=== PATIENT | female | born 1965 | race Asian ===

== ENCOUNTER 2020-11-24 17:40 | Emergency (ER) | payer BC ==
[~2020-11-24] VITALS: Ht 152.4 cm; Wt 65.8 kg
[~2020-11-24 17:40] MED LIST: ACETAMINOPHEN-1 EAC1 PO; AMBEREN; AMITRIPTYLINE H25 M2 PO; CARAFATE 1 GM TA1 GM PO; FISHOIL; FLEXERIL PO; K-DUR 20 MEQ T20 MEQ PO; LIPITOR20 MG PO; ONDANSETRON HCL4 M2 PO; PAIN RELIEVER325 MG PO; PEPCID20 MG PO; PHENERGAN 25 MG25 M1 PO; POTASSIUM20 PO; TOPROL XL25 MG PO; UNICOMPLEX M TA1 TA1 PO; VITAMIN D1000 UNI1 PO; XANAX 0.25 MG0.25 MG PO; ZYRTEC10 MG PO
[2020-11-24 19:08] LABS: ABSOLUTE BASOPHILS 0.1 thou/uL (0.0-0.2); ABSOLUTE EOSINOPHILS 0.1 thou/uL (0.0-0.7); ABSOLUTE LYMPHOCYTES 2.4 thou/uL (0.8-5.3); ABSOLUTE MONOCYTES 0.6 thou/uL (0.0-1.2); ABSOLUTE NEUTROPHILS 5.3 thou/uL (1.6-8.1); BASOPHILS 0.9 %; EOSINOPHILS 1.5 %; HEMOGLOBIN 16.4 gm/dL (12.0-15.0); LYMPHOCYTES 28.7 %; MCH 31.7 pg (26.0-34.0); MCHC 34.8 g/dL (28.0-37.0); MONOCYTES 6.5 %; MPV 7.7 fl. (7.2-11.1); NUCLEATED RBCS 0 /100WBC; PLATELET COUNT* 231 thou/uL (150-400); POLYS 62.4 %; RBC 5.17 mil/uL (4.20-5.00); RDW-CV 12.2 % (10.5-14.5); WBC 8.5 thou/uL (4.0-11.0)
[2020-11-24 19:15] LABS: CALCIUM 8.5 mg/dL (8.5-10.1); CREATININE 0.7 mg/dL (0.6-1.3); POTASSIUM 3.8 mmol/L (3.5-5.1)
[2020-11-24 19:19] LABS: TOTAL BILIRUBIN 0.6 mg/dL (<0.1-1.0); TOTAL PROTEIN 8.1 g/dL (6.4-8.2)
[2020-11-24] MEDS ORDERED: MEDROLDOSEPACK PO (20:22)
[2020-11-24] MEDS ORDERED: MELOXICAM7.5 MG PO (21:18)
[2020-11-24] MEDS ORDERED: ENDOCET 5-3251 EACH PO (21:38)
[2020-11-24 22:05] VITALS: BP 149/86
--- NOTE | 2020-11-25 09:52 | EKG ---
[place] [address] ELECTROCARDIOGRAM REPORT Name: RAYO SHAH V Room: [facility]#: [id number] Admission: 11/24/20 Attend Phys: Discharge: 11/24/20 Date of : 69 Date of Service: 11/24/201836 Report #: [id number] THIS REPORT FOR: //name// [facility] ED Test Date: 2020-11-24 Test Time: 18:37:49 Pat Name: RAYO SHAH Department: Room: Gender: F Resident Service Coordinator: CELESTINO : 1965 Requested By: Chari Linder Order Number: [id number] MD: Gabriel Spivey Measurements Intervals [place] Rate: 81 P: 81 [place]: 159 QRS: 61 QRSD: 89 T: 74 QT: 406 QTc: 472 Interpretive Statements Sinus rhythm Multiple ventricular premature complexes Probable left atrial enlargement Probable left ventricular hypertrophy Nonspecific T abnrm, anterolateral leads Compared to ECG 02/01/2016 18:08:34 Ventricular premature complex(es) now present Electronically Signed On 11-25-2020 9:52:03 CDT by Gabriel Spivey [email or web address] <ELECTRONICALLY SIGNED> By: Gabriel Spivey MD, FACC 11/25/20 [id number] Gabriel Spivey MD, FACC /EPI
== END 2020-11-24 22:05 | disposition home or self-care (01) ==
LOC: M.ERS 17:40
PROVIDERS: Nurse Practitioner Family
DX: M25.412 Effusion, left shoulder (principal); Z88.5 Allergy status to narcotic agent; Z88.6 Allergy status to analgesic agent; Z88.1 Allergy status to other antibiotic agents